=== PATIENT | female | born 1965 | race Caucasian/White ===

== ENCOUNTER 2019-10-11 19:48 | Emergency (ER) | payer MEDICAID ==
[~2019-10-11] VITALS: Ht 160 cm; Wt 74.8 kg
[2019-10-11 20:09] VITALS: BP_SYST 134
--- NOTE | 2019-10-11 20:10 | NUR ---
Patient to ER chair for evaluation. Side rails up. Report given to EDEL Soliman
--- NOTE | 2019-10-11 20:10 | NUR ---
Pt [facility], in cuffs for okay to book r/t hx hypothyroidism. Pt AAOx4, denies c/o pain or discomfort, no needs verbalized.
--- NOTE | 2019-10-11 20:13 | NUR ---
7ER Dr. [email or web address] at bedside examining patient.
[2019-10-11 20:50] VITALS: BP_SYST 132
--- NOTE | 2019-10-11 20:50 | NUR ---
Patient medically cleared by Dr Hdz, given written and verbal discharge instructions and verbalizes understanding. ER MD discussed with patient the results and treatment provided. Patient in stable condition. ID arm band removed. Rx of given. Patient educated on pain management and to follow up with PMD. Pain Scale 0/10. Opportunity for questions provided and answered. Pt accompanied by [facility] to car with handcuffs.
== END 2019-10-11 20:50 ==
LOC: SED 19:48
DX: Z02.89 Encounter for other administrative examinations (principal); E07.9 Disorder of thyroid, unspecified; F12.90 Cannabis use, unspecified, uncomplicated
CPT/HCPCS: 99283